=== PATIENT | male | born 1975 | race Caucasian/White ===

== ENCOUNTER 2016-11-20 12:19 | Emergency (ER) | payer OTHER ==
[~2016-11-20] VITALS: Wt 75.0 kg
[~2016-11-20 12:19] MED LIST: ACET1TAB40 PO; ALBU8.5H3 INH; ARIP20TA6 PO; CLIN-73 PO; HYDR-3498 PO; HYDR-906 PO; IBUP-1542 PO; KENC1 TOP; NAPR-260 PO; NAPR-688 PO; PARO30TA48 PO; PRED50TA PO
== END 2016-11-20 14:39 | disposition left against medical advice (07) ==
LOC: FTE 12:19
DX: Z53.21 Procedure and treatment not carried out due to patient leaving prior to being seen by health care provider (principal)

== ENCOUNTER 2016-12-26 21:04 | Emergency (ER) | payer OTHER ==
[~2016-12-26] VITALS: Ht 177.8 cm; Wt 70.4 kg
[2016-12-26 21:07] VITALS: Ht 177.8 cm; Wt 70.4 kg
--- NOTE | 2016-12-26 22:30 | ERD ---
ER Documentation Chief Complaint Date/Time DATE: 12/26/16 TIME: 22:27 Chief Complaint HAND PAIN. STATES HIS OSTEOARTHRITIS IS "ACTING UP" HPI 41-year-old male presents here in emergency department for complaints of left hand pain started today. Patient has history of osteoarthritis of the left hand , also had procedures done on the left hand, had a history of fracture of the left hand started to have the pain again today. Patient has had chronic pain on affected area but it acted up again today. Patient denies any reinjury. Patient noticed some swelling on affected area. Patient did not take any medications for pain. Patient denies any numbness or tingling. Patient states he is able to do full range of motion of the left hand without restriction. ROS All systems reviewed and are negative except as per history of present illness. Medications Home Meds Active Scripts Acetaminophen with Codeine (Acetaminophen-Cod #3 Tablet) 1 Each Tablet, 1 TAB PO Q6H Y for PAIN, #10 TAB Prov:SALMA MAYFIELD MD 09/25/16 Ibuprofen* (Motrin*) 600 Mg Tab, 600 MG PO Q6, #30 TAB Prov:SALMA MAYFIELD MD 09/25/16 Prednisone* (Prednisone*) 50 Mg Tablet, 50 MG PO DAILY, #4 TAB Prov:MARIBELL GAINES PA-C 09/22/16 Albuterol Sulfate* (Proair HFA*) 8.5 Gm Hfa.aer.ad, 2 PUFF INH Q4, #1 INHALER Prov:MARIBELL GAINES PA-C 09/22/16 Hydrocodone/Acetaminophen ([place] 5-325 Tablet) 1 Each Tablet, 1 EACH PO Q6, #7 TAB Prov:TANIA URIOSTEGUI DO 09/14/16 Naproxen* (Naprosyn*) 500 Mg Tablet, 500 MG PO BID Y for PAIN AND/OR INFLAMMATION, #22 TAB Prov:TANIA URIOSTEGUI DO 09/14/16 Triamcinolone Acetonide* (Kenalog*) 0.1%-15GM Cr, 1 APPLIC TOP BID, #1 TUB Prov:JENNIFER DIAMOND 06/13/16 Naproxen* (Naprosyn*) 500 Mg Tablet, 500 MG PO BID Y for PAIN AND/OR INFLAMMATION, #30 TAB Prov:JAYSON ZUÑIGA PA-C 05/06/16 Hydrocodone Bit-Acetaminophen* ([place]*) 5-325 Mg Tab, 1 TAB PO Q6 Y for PAIN, # 7 TAB Prov:ZUÑIGAJAYSONDMITRY Klein PA-C 05/06/16 Naproxen* (Naproxen*) 500 Mg Tablet, 500 MG PO BID Y for PAIN LEVEL 1-5, #30 TAB Prov:TANIA URIOSTEGUI DO 01/17/16 Clindamycin Hcl* (Clindamycin Hcl*) 300 Mg Capsule, 300 MG PO TID for 10 Days, CAP Prov:LEONEL MORRIS NP 09/15/15 Reported Medications Hydrocodone Bit-Acetaminophen ([place]) 1 Tab Tablet, 1 TAB PO Q6 06/06/12 Aripiprazole* (Abilify*) 20 Mg Tablet, 30 MG PO DAILY, 0 Refills 06/06/12 Paroxetine Hcl* (Paxil*) 30 Mg Tablet, 40 MG PO DAILY, 0 Refills 06/06/12 Allergies Allergies: Coded Allergies: Phenytoin Sodium Extended (Verified Allergy, Intermediate, INCREASE SZ ACTIVITY, 09/25/16) PMhx/Soc History of Surgery: Yes (l hand sx 10/08) Anesthesia Reaction: No Hx Neurological Disorder: Yes (seizure) Hx Respiratory Disorders: No Hx Cardiac Disorders: No Hx Psychiatric Problems: Yes (bipolar, schizoprenia) Hx Miscellaneous Medical Probl: Yes (osteoarthritis) Hx Alcohol Use: Yes Hx Substance Use: No Hx Tobacco Use: Yes (1/2 PACK/DAY) Smoking Status: Current every day smoker FmHx Family History: No coronary disease, No diabetes, No other Physical Exam Vitals Vital Signs Date Time Temp Pulse Resp B/P Pulse Ox O2 Delivery O2 Flow Rate FiO2 12/26/16 21:07 98.0 110 20 116/79 98 Physical Exam GENERAL: The patient is well developed and appropriate for usual state of health, in no apparent distress. CHEST: Clear to auscultation bilaterally. There are no rales, wheezes or rhonchi. HEART: Regular rate and rhythm. No murmurs, clicks, rubs or gallops. No S3 or S4. ABDOMEN: Soft, nontender and nondistended. Good bowel sounds. No rebound or guarding. No gross peritonitis. No gross organomegaly or masses. No Liu sign or McBurney point tenderness. BACK: No midline or flank tenderness. EXTREMITIES: Noted some deformity on the left fifth metacarpal area, mild swelling noted, able to do for range of motion of the left hand without any restriction. Equal pulses bilaterally. For range of motion of other joints of the body. Grossly neurovascularly intact. NEURO: Alert and oriented. Cranial nerves 2-12 intact. Motor strength in all 4 extremities with 5/5 strength. Sensation grossly intact. Normal speech and gait. SKIN: There is no apparent rash or petechia. The skin is warm and dry. HEMATOLOGIC AND LYMPHATIC: There is no evidence of excessive bruising or lymphedema. No gross cervical, axillary, or inguinal lymphadenopathy. Results 24 hrs PROCEDURE: XR Hand. CLINICAL INDICATION: Left hand pain in the fifth metacarpal base TECHNIQUE: PA, oblique and lateral views of the left hand were obtained. COMPARISON: Most recent exam 05/06/2016 FINDINGS: Again noted is bony deformity at the posterior fifth metacarpal base with an ununited nondisplaced fracture in this location. Bony fragmentation is unchanged and there is persistent dorsal angulation and mild subluxation of the fifth metacarpal base relative to the carpal bones. There is no evidence of acute fracture or dislocation. Bone mineralization and architecture are normal. RPTAT:HJJR IMPRESSION: Stable changes of the left fifth metacarpal base compared to the most recent exam of 05/06/2016 most consistent with post traumatic osteoarthrosis, chronic posterior subluxation and bony fragmentation as well as likely incomplete union of the previously seen fifth metacarpal base fracture. No new abnormalities are demonstrated compared to the previous exam. Physician Armando Date Time Electronically viewed and signed by Physician Armando on 12/26/2016 22:55 JR/ CC: KRISTIAN BHAKTA ARMATURE STRAIGHTENER Procedures/MDM Medical Decision Making: Patient's pain is most likely consistent with a on a pain of the left hand consistent with previous injuries. There is no suspicion for neurovascular compromise. Patient has intact sensation and circulation of the affected extremity. There is low suspicion for septic arthritis. Patient does not have any fever. Radiology exams of the affected area does not show any new fracture or dislocation. Disposition: Home. Patient is given prescription for ibuprofen for pain, [place] for severe pain. Patient was advised to elevate the affected area and apply ice on affected area. Patient was advised that if symptoms are worse, numbness, tingling, high fever, unable to move joint, worsening symptoms, to return to emergency department immediately. Otherwise, patient is advised to follow up with the primary care doctor in 5-7 days for reevaluation of symptoms. Departure Diagnosis: Primary Impression: Pain of hand Laterality: left Qualified Code: M79.642 - Pain of left hand Condition: Stable Patient Instructions: Chronic Pain Additional Instructions: Patient is given prescription for ibuprofen for pain, [place] for severe pain. Patient was advised to elevate the affected area and apply ice on affected area. Patient was advised that if symptoms are worse, numbness, tingling, high fever, unable to move joint, worsening symptoms, to return to emergency department immediately. Otherwise, patient is advised to follow up with the primary care doctor in 5-7 days for reevaluation of symptoms. KRISTIAN BHAKTA NP Dec 26, 2016 22:29
--- NOTE | 2016-12-26 22:55 | RADRPT ---
PROCEDURE: XR Hand. CLINICAL INDICATION: Left hand pain in the fifth metacarpal base TECHNIQUE: PA, oblique and lateral views of the left hand were obtained. COMPARISON: Most recent exam 05/06/2016 FINDINGS: Again noted is bony deformity at the posterior fifth metacarpal base with an ununited nondisplaced f racture in this location. Bony fragmentation is unchanged and there is persistent dorsal angulation and mild subluxation of the fifth metacarpal base relative to the carpal bones. There is no eviden ce of acute fracture or dislocation. Bone mineralization and architecture are normal. RPTAT:HJJR IMPRESSION: Stable changes of the left fifth metacarpal base compared to the most recent exam of 05/06/2016 most consistent with post traumatic osteoarthrosis, chronic posterior subluxation and bony fragmentation as well as likely incomplete union of the previously seen fifth metacarpal base fracture. No new a bnormalities are demonstrated compared to the previous exam. Physician Armando Date Time Electronically viewed and signed by Physician Armando on 12/26/2016 22:55 /
[2016-12-26] MEDS ORDERED: HYDR-906 PO (23:00)
[2016-12-26] MEDS ORDERED: IBUP-1542 PO (23:00)
== END 2016-12-26 23:18 | disposition home or self-care (01) ==
LOC: FTE 21:04
DX: M79.642 Pain in left hand (principal); F17.210 Nicotine dependence, cigarettes, uncomplicated
CPT/HCPCS: 73130; Z7502

== ENCOUNTER 2017-01-06 22:56 | Emergency (ER) | payer SELFPAY ==
[~2017-01-06] VITALS: Ht 180.3 cm; Wt 68.5 kg
[2017-01-06 23:42] VITALS: Ht 180.3 cm; Wt 68.5 kg
== END 2017-01-07 02:39 | disposition left against medical advice (07) ==
LOC: FTE 22:56
DX: Z53.21 Procedure and treatment not carried out due to patient leaving prior to being seen by health care provider (principal)

== ENCOUNTER 2017-01-18 13:00 | Emergency (ER) | payer SELFPAY | END 2017-01-18 13:28 | disposition left against medical advice (07) | LOC: E/R 13:00 | DX: Z53.21 Procedure and treatment not carried out due to patient leaving prior to being seen by health care provider (principal) ==

== ENCOUNTER 2017-01-23 08:47 | Emergency (ER) | payer OTHER ==
[~2017-01-23] VITALS: Ht 177.8 cm; Wt 75.0 kg
[2017-01-23 08:49] VITALS: Ht 177.8 cm; Wt 75.0 kg
[2017-01-23 09:36] LABS: ADD SCAN DIFF NO
[2017-01-23 09:43] LABS: BASOPHILS % 0.3 % (0.0-2.0); EOSINOPHILS # 0.1 10^3/ul (0.0-0.5); EOSINOPHILS % 1.3 % (0.0-7.0); HEMOGLOBIN 13.7 g/dl (14.0-18.0); LYMPHOCYTES # 1.5 10^3/ul (0.8-2.9); LYMPHOCYTES % 38.4 % (15.0-51.0); MEAN CORPUSCULAR HEMOGLOBIN 30.9 pg (29.0-33.0); MEAN CORPUSCULAR HGB CONC 32.6 g/dl (32.0-37.0); MEAN CORPUSCULAR VOLUME 94.8 fl (82.0-101.0); MEAN PLATELET VOLUME 9.2 fl (7.4-10.4); MONOCYTE # 0.5 10^3/ul (0.3-0.9); NEUTROPHIL # 1.8 10^3/ul (1.6-7.5); NEUTROPHILS % 46.7 % (39.0-77.0); PLATELET COUNT 229 10^3/UL (140-415); RED BLOOD COUNT 4.43 10^6/ul (4.70-6.10); RED CELL DISTRIBUTION WIDTH 13.9 % (11.5-14.5); WHITE BLOOD COUNT 3.8 10^3/ul (4.8-10.8)
[2017-01-23 09:51] LABS: ALBUMIN 3.8 g/dl (3.3-4.9)
[2017-01-23 09:52] LABS: ADD UMIC NO; CHLORIDE 106 mmol/L (97-110); POTASSIUM 4.3 mmol/L (3.5-5.1); SODIUM 139 mmol/L (135-144); URINE BILIRUBIN (Dip) NEGATIVE (NEGATIVE); URINE BLOOD (Dip) NEGATIVE (NEGATIVE); URINE COLOR LT. YELLOW (YELLOW); URINE GLUCOSE (Dip) NEGATIVE (NEGATIVE); URINE KETONES (Dip) NEGATIVE (NEGATIVE); URINE LEUKOCYTE ESTERASE (Dip) NEGATIVE (NEGATIVE); URINE NITRITE (Dip) NEGATIVE (NEGATIVE); URINE TOTAL PROTEIN (Dip) NEGATIVE (NEGATIVE); URINE UROBILINOGEN (Dip) 0.2 E.U./dL (0.1-1.0)
[2017-01-23 09:54] LABS: ALKALINE PHOSPHATASE 54 IU/L (42-121); ANION GAP 9 (8-16); ASPARTATE AMINO TRANSFERASE 18 IU/L (15-46); BILIRUBIN,INDIRECT 0.4 mg/dl (0-1.1); BILIRUBIN,TOTAL 0.4 mg/dl (0.2-1.3); BLOOD UREA NITROGEN 19 mg/dl (7-20); CARBON DIOXIDE 28 mmol/L (21-31); CREATININE 0.78 mg/dl (0.61-1.24); TOTAL PROTEIN 6.5 g/dl (6.1-8.1)
[2017-01-23 09:55] LABS: ALANINE AMINOTRANSFERASE 30 IU/L (13-69); CALCIUM 8.8 mg/dl (8.4-10.2); GLUCOSE 109 mg/dl (70-220)
[2017-01-23 10:15] LABS: ACETAMINOPHEN < 10.0 ug/ml (10.0-30.0); ETHANOL < 10.0 mg/dl; SALICYLATE < 1.0 mg/dl (5.0-30.0)
--- NOTE | 2017-01-23 10:16 | PSY ---
Date/Time of Note Date/Time of Note DATE: 01/23/17 TIME: 13:11 Psychiatric Subjective Eval Consent Pt consented to telemedicine: Yes Subjective Evaluation Patient location: emergency Chief Complaint: SUICIDAL IDEATION,HAD PREVIOUS ATTEMPT.WANTS TO USE RASOR TO CUT WRIST Reason for consult: si History of present illness The patient is a 37 yo male with a self reported ho bipolar disorder, schizophrenia, and methamphetamine dependence. He has been nonadherent with meds for a month, and has been using methamphetamine. He brought himself to the ER for depression, CAH to kill self, cutting, and SI withplan to cut self to . He desires admission. Past Psych Hx: reports numerous past admissions and suicide attempts; cuts frequently PMHx: epilepsy Meds: nonadherent with gabapentin, abilify, VPA All: phenytoin Medical history Problems Medical Problems: (1) Asthma exacerbation Status: Acute (2) Cellulitis Status: Acute (3) Drug-seeking behavior Status: Acute (4) Elbow pain Status: Acute (5) Foot pain Status: Acute (6) Hand fracture Status: Acute (7) Hip injury Status: Acute (8) Injury of hand Status: Acute (9) Osteoarthritis Status: Acute (10) Pain of hand Status: Acute (11) Pain of hand Status: Acute (12) Pain of hand Status: Acute (13) Patient left without being seen Status: Acute (14) Sprain of ankle, right Status: Acute (15) Strain of right hip Status: Acute Allergies: Coded Allergies: Phenytoin Sodium Extended (Verified Allergy, Intermediate, INCREASE SZ ACTIVITY, 09/25/16) Psychiatric Objective Eval Mental Status Examination: Appearance: Disheveled Eye Contact: Good Psychomotor Activity: Normal Behavior: Cooperative Speech: Clear AFFECT: Blunt Mood: Depressed Though Process: Linear Thought Content: Normal Suicidal: Yes On 72 hour hold: Yes Orientation: x4 Cognition: Alert Insight: Intact Judgement: Impared Attention Span: Intact Laboratory Results Laboratory Tests Test 01/23/17 09:18 White Blood Count 3.810^3/ul Red Blood Count 4.4310^6/ul Hemoglobin 13.7g/dl Hematocrit 42.0% Mean Corpuscular Volume 94.8fl Mean Corpuscular Hemoglobin 30.9pg Mean Corpuscular Hemoglobin Concent 32.6g/dl Red Cell Distribution Width 13.9% Platelet Count 58166^3/UL Mean Platelet Volume 9.2fl Neutrophils % 46.7% Lymphocytes % 38.4% Monocytes % 13.0% Eosinophils % 1.3% Basophils % 0.3% Nucleated Red Blood Cells % 0.0/100WBC Neutrophils # 1.810^3/ul Lymphocytes # 1.510^3/ul Monocytes # 0.510^3/ul Eosinophils # 0.110^3/ul Basophils # 0.010^3/ul Nucleated Red Blood Cells # 0.010^3/ul Urine Color LT. YELLOW Urine Clarity CLEAR Urine pH 5.5 Urine Specific [place] 1.010 Urine Ketones NEGATIVE Urine Nitrite NEGATIVE Urine Bilirubin NEGATIVE Urine Urobilinogen 0.2 E.U./dL Urine Leukocyte Esterase NEGATIVE Urine Hemoglobin NEGATIVE Urine Glucose NEGATIVE% Urine Total Protein NEGATIVE Sodium Level 139mmol/L Potassium Level 4.3mmol/L Chloride Level 106mmol/L Carbon Dioxide Level 28mmol/L Anion Gap 9 Blood Urea Nitrogen 19mg/dl Creatinine 0.78mg/dl Glucose Level 109mg/dl Calcium Level 8.8mg/dl Total Bilirubin 0.4mg/dl Direct Bilirubin 0.00mg/dl Indirect Bilirubin 0.4mg/dl Aspartate Amino Transf (AST/SGOT) 18IU/L Alanine Aminotransferase (ALT/SGPT) 30IU/L Alkaline Phosphatase 54IU/L Total Protein 6.5g/dl Albumin 3.8g/dl Globulin 2.70g/dl Albumin/Globulin Ratio 1.40 Assessment and Plan Assessment/Diagnosis [place] I: bipolar do, with psychosis; methamphetamine abuse Recommendation/Plan Medication Management 41 yo male with BAD/SCZ, meth abuse, with SI with plan, CAH to kill self in context of methamphetamine use and med nonadherence. -inpatient admission (pt agrees to this) -restart abilify2.5mg for 2d then 5mg after antiepileptic has been started ( preference would be VPA given he has been on it before and it works for BAD) to make sure abilify does nto lower sz threshold -restart gabapentin 600mg bid -for severe agitation, haldol 5mg IM, ativan 2mg im, cogentin 1mg im JOHANA CORTEZ Jan 23, 2017 10:16
[2017-01-23 10:25] LABS: BARBITURATES Negative (NEGATIVE); BENZODIAZEPINES Negative (NEGATIVE); CANNABINOIDS Negative (NEGATIVE); COCAINE Negative (NEGATIVE); OPIATES Negative (NEGATIVE)
[2017-01-23] MEDS ORDERED: ARIPIPRAZOLE 5 MG TAB PO SCH (10:30)
[2017-01-23] MEDS ORDERED: DIVALPROEX (EC) 500 MG TAB PO ONE (10:30)
[2017-01-23] MEDS ORDERED: GABAPENTIN 300 MG CAP PO SCH (10:30)
--- NOTE | 2017-01-23 10:36 | ERA ---
ER Documentation Chief Complaint Date/Time DATE: 01/23/17 TIME: 10:33 Chief Complaint SUICIDAL IDEATION,HAD PREVIOUS ATTEMPT.WANTS TO USE RASOR TO CUT WRIST HPI Patient is a 41-year-old male with bipolar and schizophrenia presents with "I have a medical problem and I am tired and I do not want to live like this". He says "I need help". He says that he is feeling suicidal and has a history of cutting. He also said that last week he went on top of a over the past and was going to jump onto the freeway. He is supposed to be on Abilify, Depakote, and gabapentin but he has not been taking them for about 1 month. He is willing to go to a voluntary psychiatric facility. He said that his last methamphetamine use was 4 days ago. ROS All systems reviewed and are negative except as per history of present illness. Medications Home Meds Active Scripts Hydrocodone/Acetaminophen ([place] 5-325 Tablet) 1 Each Tablet, 1 TAB PO Q6H Y for SEVERE PAIN LEVEL 7-10, #7 TAB Prov:KRISTIAN BHAKTA NP 12/26/16 Ibuprofen* (Motrin*) 600 Mg Tab, 600 MG PO Q6H Y for PAIN AND OR ELEVATED TEMP, #30 TAB Prov:KRISTIAN BHAKTA NP 12/26/16 Acetaminophen with Codeine (Acetaminophen-Cod #3 Tablet) 1 Each Tablet, 1 TAB PO Q6H Y for PAIN, #10 TAB Prov:SALMA MAYFIELD MD 09/25/16 Ibuprofen* (Motrin*) 600 Mg Tab, 600 MG PO Q6, #30 TAB Prov:SALMA MAYFIELD MD 09/25/16 Prednisone* (Prednisone*) 50 Mg Tablet, 50 MG PO DAILY, #4 TAB Prov:MARIBELL GAINES PA-C 09/22/16 Albuterol Sulfate* (Proair HFA*) 8.5 Gm Hfa.aer.ad, 2 PUFF INH Q4, #1 INHALER Prov:MARIBELL GAINES PA-C 09/22/16 Hydrocodone/Acetaminophen ([place] 5-325 Tablet) 1 Each Tablet, 1 EACH PO Q6, #7 TAB Prov:TANIA URIOSTEGUI DO 09/14/16 Naproxen* (Naprosyn*) 500 Mg Tablet, 500 MG PO BID Y for PAIN AND/OR INFLAMMATION, #22 TAB Prov:TANIA URIOSTEGUI DO 09/14/16 Triamcinolone Acetonide* (Kenalog*) 0.1%-15GM Cr, 1 APPLIC TOP BID, #1 TUB Prov:JENNIFER DIAMOND 06/13/16 Naproxen* (Naprosyn*) 500 Mg Tablet, 500 MG PO BID Y for PAIN AND/OR INFLAMMATION, #30 TAB Prov:JAYSON ZUÑIGA PA-C 05/06/16 Hydrocodone Bit-Acetaminophen* ([place]*) 5-325 Mg Tab, 1 TAB PO Q6 Y for PAIN, # 7 TAB Prov:JAYSON ZUÑIGA PA-C 05/06/16 Naproxen* (Naproxen*) 500 Mg Tablet, 500 MG PO BID Y for PAIN LEVEL 1-5, #30 TAB Prov:TANIA URIOSTEGUI DO 01/17/16 Clindamycin Hcl* (Clindamycin Hcl*) 300 Mg Capsule, 300 MG PO TID for 10 Days, CAP Prov:LEONEL MORRIS NP 09/15/15 Reported Medications Hydrocodone Bit-Acetaminophen ([place]) 1 Tab Tablet, 1 TAB PO Q6 06/06/12 Aripiprazole* (Abilify*) 20 Mg Tablet, 30 MG PO DAILY, 0 Refills 06/06/12 Paroxetine Hcl* (Paxil*) 30 Mg Tablet, 40 MG PO DAILY, 0 Refills 06/06/12 Allergies Allergies: Coded Allergies: Phenytoin Sodium Extended (Verified Allergy, Intermediate, INCREASE SZ ACTIVITY, 09/25/16) PMhx/Soc History of Surgery: Yes (l hand sx 10/08) Anesthesia Reaction: No Hx Neurological Disorder: Yes (seizure) Hx Respiratory Disorders: No Hx Cardiac Disorders: No Hx Psychiatric Problems: Yes (bipolar, schizoprenia) Hx Miscellaneous Medical Probl: Yes (osteoarthritis) Hx Alcohol Use: Yes (occasional) Hx Substance Use: Yes (meth 4 days ago) Hx Tobacco Use: Yes (1/2 PACK/DAY) Smoking Status: Current every day smoker FmHx Family History: diabetes Physical Exam Vitals Vital Signs Date Time Temp Pulse Resp B/P Pulse Ox O2 Delivery O2 Flow Rate FiO2 01/23/17 08:49 98.5 89 18 136/87 98 Physical Exam Const: No acute distress Head: Atraumatic Eyes: Normal Conjunctiva ENT: Normal External Ears, Nose and Mouth. Neck: Full range of motion..~ No meningismus. Resp: Clear to auscultation bilaterally Cardio: Regular rate and rhythm, no murmurs Abd: Soft, non tender, non distended. Normal bowel sounds Skin: Old cutting scars to the right forearm Back: No midline or flank tenderness Ext: No cyanosis, or edema Neur: Awake and alert Psych: Positive suicidal thoughts with willingness to go voluntarily to a psychiatric facility Result Diagram: 01/23/1718 01/23/1718 Results 24 hrs Laboratory Tests Test 01/23/17 09:18 White Blood Count 3.810^3/ul Red Blood Count 4.4310^6/ul Hemoglobin 13.7g/dl Hematocrit 42.0% Mean Corpuscular Volume 94.8fl Mean Corpuscular Hemoglobin 30.9pg Mean Corpuscular Hemoglobin Concent 32.6g/dl Red Cell Distribution Width 13.9% Platelet Count 12634^3/UL Mean Platelet Volume 9.2fl Neutrophils % 46.7% Lymphocytes % 38.4% Monocytes % 13.0% Eosinophils % 1.3% Basophils % 0.3% Nucleated Red Blood Cells % 0.0/100WBC Neutrophils # 1.810^3/ul Lymphocytes # 1.510^3/ul Monocytes # 0.510^3/ul Eosinophils # 0.110^3/ul Basophils # 0.010^3/ul Nucleated Red Blood Cells # 0.010^3/ul Urine Color LT. YELLOW Urine Clarity CLEAR Urine pH 5.5 Urine Specific [place] 1.010 Urine Ketones NEGATIVE Urine Nitrite NEGATIVE Urine Bilirubin NEGATIVE Urine Urobilinogen 0.2 E.U./dL Urine Leukocyte Esterase NEGATIVE Urine Hemoglobin NEGATIVE Urine Glucose NEGATIVE% Urine Total Protein NEGATIVE Sodium Level 139mmol/L Potassium Level 4.3mmol/L Chloride Level 106mmol/L Carbon Dioxide Level 28mmol/L Anion Gap 9 Blood Urea Nitrogen 19mg/dl Creatinine 0.78mg/dl Glucose Level 109mg/dl Calcium Level 8.8mg/dl Total Bilirubin 0.4mg/dl Direct Bilirubin 0.00mg/dl Indirect Bilirubin 0.4mg/dl Aspartate Amino Transf (AST/SGOT) 18IU/L Alanine Aminotransferase (ALT/SGPT) 30IU/L Alkaline Phosphatase 54IU/L Total Protein 6.5g/dl Albumin 3.8g/dl Globulin 2.70g/dl Albumin/Globulin Ratio 1.40 Salicylates Level < 1.0mg/dl Urine Opiates Screen Negative Acetaminophen Level < 10.0ug/ml Urine Barbiturates Negative Urine Amphetamines Screen Negative Urine Benzodiazepines Screen Negative Urine Cocaine Screen Negative Urine Cannabinoids Negative Ethyl Alcohol Level < 10.0mg/dl Current Medications Medications (Trade) Dose Ordered Sig/Faina Route PRN Reason Start Time Stop Time Status Last Admin Dose Admin Divalproex Sodium (Depakote) 500 mg ONCE ONCE PO 01/23/17 10:30 01/23/17 10:31 UNV Aripiprazole (Abilify) 2.5 mg DAILY PO 01/23/17 10:30 UNV Gabapentin (Neurontin) 600 mg BID PO 01/23/17 10:30 UNV Procedures/MDM Smoking Cessation Therapy: Pt. was lectured for greater than 3 minutes on the health risks of continued smoking and the benefits of cessation. Patient is a 41-year-old male who presents with suicidal thoughts. He is willing to go to a psychiatric facility voluntarily and I do believe that he would be a good patient to go to [facility] as they are a voluntary psychiatric facility. The patient had laboratory studies and urine drug screen which were negative and I believe he is now medically clear. His aspirin, Tylenol, and alcohol levels are negative. The patient had a psychiatric evaluation and psychiatric treatment was recommended. I did order Abilify, Depakote, and gabapentin as directed by the psychiatrist. Departure Diagnosis: Primary Impression: Suicidal ideation Condition: MEAGAN Niño MD Jan 23, 2017 10:36
[2017-01-23 12:59] VITALS: BP 118/85; PULSE 81; RESP 16; TEMP 98.4
== END 2017-01-23 12:47 ==
LOC: E/R 08:47
DX: F29 Unspecified psychosis not due to a substance or known physiological condition (principal); R40.2252 Coma scale, best verbal response, oriented, at arrival to emergency department; R45.851 Suicidal ideations; F17.210 Nicotine dependence, cigarettes, uncomplicated; R40.2142 Coma scale, eyes open, spontaneous, at arrival to emergency department; R40.2362 Coma scale, best motor response, obeys commands, at arrival to emergency department
CPT/HCPCS: 36415; 80053; 80164; 80306; 80307; 81003; 85025; Z7502; Z7610; 99285

== ENCOUNTER 2017-01-27 14:25 | Emergency (ER) | payer SELFPAY ==
[~2017-01-27] VITALS: Wt 76.0 kg
== END 2017-01-27 17:11 | disposition left against medical advice (07) ==
LOC: E/R 14:25
DX: Z53.21 Procedure and treatment not carried out due to patient leaving prior to being seen by health care provider (principal)

== ENCOUNTER 2017-01-28 12:53 | Emergency (ER) | payer OTHER ==
[~2017-01-28] VITALS: Ht 170.2 cm; Wt 68.0 kg
[2017-01-28 13:01] VITALS: Ht 170.2 cm; Wt 68.0 kg
[2017-01-28] MEDS: DIVALPROEX (EC) 500 MG TAB PO SCH (13:57)
[2017-01-28] MEDS: GABAPENTIN 300 MG CAP PO SCH ×2 (13:58→21:06)
[2017-01-28] MEDS: ARIPIPRAZOLE 5 MG TAB PO SCH (13:58)
[2017-01-28 13:59] LABS: ADD SCAN DIFF NO
[2017-01-28 14:04] LABS: BASOPHILS % 0.1 % (0.0-2.0); EOSINOPHILS % 0.6 % (0.0-7.0); HEMATOCRIT 45.9 % (42.0-52.0); HEMOGLOBIN 14.6 g/dl (14.0-18.0); LYMPHOCYTES # 2.3 10^3/ul (0.8-2.9); LYMPHOCYTES % 33.6 % (15.0-51.0); MEAN CORPUSCULAR HEMOGLOBIN 30.3 pg (29.0-33.0); MEAN CORPUSCULAR HGB CONC 31.8 g/dl (32.0-37.0); MEAN CORPUSCULAR VOLUME 95.2 fl (82.0-101.0); MEAN PLATELET VOLUME 8.9 fl (7.4-10.4); MONOCYTE # 0.9 10^3/ul (0.3-0.9); MONOCYTES % 13.7 % (0.0-11.0); NEUTROPHIL # 3.6 10^3/ul (1.6-7.5); NEUTROPHILS % 51.7 % (39.0-77.0); PLATELET COUNT 313 10^3/UL (140-415); RED BLOOD COUNT 4.82 10^6/ul (4.70-6.10); RED CELL DISTRIBUTION WIDTH 13.9 % (11.5-14.5); WHITE BLOOD COUNT 6.9 10^3/ul (4.8-10.8)
[2017-01-28 14:12] LABS: ADD UMIC NO; URINE BILIRUBIN (Dip) NEGATIVE (NEGATIVE); URINE BLOOD (Dip) NEGATIVE (NEGATIVE); URINE COLOR LT. YELLOW (YELLOW); URINE GLUCOSE (Dip) NEGATIVE (NEGATIVE); URINE KETONES (Dip) NEGATIVE (NEGATIVE); URINE LEUKOCYTE ESTERASE (Dip) NEGATIVE (NEGATIVE); URINE NITRITE (Dip) NEGATIVE (NEGATIVE); URINE TOTAL PROTEIN (Dip) NEGATIVE (NEGATIVE); URINE UROBILINOGEN (Dip) 0.2 E.U./dL (0.1-1.0)
[2017-01-28 14:17] LABS: ALBUMIN 5.1 g/dl (3.3-4.9); CHLORIDE 104 mmol/L (97-110)
[2017-01-28 14:18] LABS: POTASSIUM 3.9 mmol/L (3.5-5.1); SODIUM 146 mmol/L (135-144)
[2017-01-28 14:20] LABS: ALANINE AMINOTRANSFERASE 35 IU/L (13-69); ALBUMIN/GLOBULIN RATIO 1.54; ALKALINE PHOSPHATASE 65 IU/L (42-121); ANION GAP 17 (8-16); ASPARTATE AMINO TRANSFERASE 50 IU/L (15-46); BLOOD UREA NITROGEN 30 mg/dl (7-20); CALCIUM 9.7 mg/dl (8.4-10.2); CARBON DIOXIDE 29 mmol/L (21-31); CREATININE 0.99 mg/dl (0.61-1.24); GLUCOSE 116 mg/dl (70-220); TOTAL PROTEIN 8.4 g/dl (6.1-8.1)
[2017-01-28 14:21] LABS: ACETAMINOPHEN < 10.0 ug/ml (10.0-30.0); SALICYLATE < 1.0 mg/dl (5.0-30.0)
[2017-01-28 14:22] LABS: ETHANOL < 10.0 mg/dl
[2017-01-28] MEDS ORDERED: LORAZEPAM 1 MG TAB PO ONE (14:30)
[2017-01-28 14:32] LABS: BARBITURATES Negative (NEGATIVE); BENZODIAZEPINES Negative (NEGATIVE)
[2017-01-28 14:34] LABS: CANNABINOIDS Negative (NEGATIVE); COCAINE Negative (NEGATIVE); OPIATES Negative (NEGATIVE)
--- NOTE | 2017-01-28 14:51 | PSY ---
Date/Time of Note Date/Time of Note DATE: 01/28/17 TIME: 14:44 Psychiatric Subjective Eval Consent Pt consented to telemedicine: Yes Subjective Evaluation Patient location: emergency Chief Complaint: pt arrived with razor blade in mouth and wants to ,removed in triage Reason for consult: suicidal ideation History of present illness PT IS 41 YO homeless, unemployed male, a registered sex offender, with hx frequent ED visits due to Si and frequent psychiatric admissions. Pt admits to using meth prior to coming to ED. He says he has been feeling suicidal for 2 years because he feels like people are following him. He reports depressed mood , command Ah and Si with a plan to cut himself. He denies Vh and HI. Homeless for 2 months since a break up with his partner. Past psychiatric history last inpt was a week ago; he is on abilify and depakote. hx incarderation in 2009 for indecent exposure Hospitalization: Suicidal Attempt(s) Family History denies Medical history Problems Medical Problems: (1) Asthma exacerbation Status: Acute (2) Cellulitis Status: Acute (3) Drug-seeking behavior Status: Acute (4) Elbow pain Status: Acute (5) Foot pain Status: Acute (6) Hand fracture Status: Acute (7) Hip injury Status: Acute (8) Injury of hand Status: Acute (9) Osteoarthritis Status: Acute (10) Pain of hand Status: Acute (11) Pain of hand Status: Acute (12) Pain of hand Status: Acute (13) Patient left without being seen Status: Acute (14) Patient left without being seen Status: Acute (15) Sprain of ankle, right Status: Acute (16) Strain of right hip Status: Acute (17) Suicidal ideation Status: Acute Allergies: Coded Allergies: Phenytoin Sodium Extended (Verified Allergy, Intermediate, INCREASE SZ ACTIVITY, 09/25/16) Substance Abuse Substance abuse history: Yes Prior substance abuse treatmen: Yes Social History Marital status: single Level of education: hs DPA/Conservatorship: No Psychiatric Objective Eval Review of Systems: Review of Systems: Not Applicable Physical Examination: Physical Examination: Not Applicable Appetite: Decreased Energy: Decreased Interest: Decreased Mental Status Examination: Appearance: Groomed Eye Contact: Fair Psychomotor Activity: Normal Behavior: Guarded Speech: Clear AFFECT: Guarded Mood: Depressed Though Process: Linear Thought Content: Hallucinations Suicidal: Yes Homicidal: No On 72 hour hold: No Orientation: x4 Cognition: Alert Insight: Impared Judgement: Impared Laboratory Results Laboratory Tests Test 01/28/17 13:45 White Blood Count 6.910^3/ul Red Blood Count 4.8210^6/ul Hemoglobin 14.6g/dl Hematocrit 45.9% Mean Corpuscular Volume 95.2fl Mean Corpuscular Hemoglobin 30.3pg Mean Corpuscular Hemoglobin Concent 31.8g/dl Red Cell Distribution Width 13.9% Platelet Count 50467^3/UL Mean Platelet Volume 8.9fl Neutrophils % 51.7% Lymphocytes % 33.6% Monocytes % 13.7% Eosinophils % 0.6% Basophils % 0.1% Nucleated Red Blood Cells % 0.0/100WBC Neutrophils # 3.610^3/ul Lymphocytes # 2.310^3/ul Monocytes # 0.910^3/ul Eosinophils # 0.010^3/ul Basophils # 0.010^3/ul Nucleated Red Blood Cells # 0.010^3/ul Urine Color LT. YELLOW Urine Clarity CLEAR Urine pH 6.0 Urine Specific [place] 1.020 Urine Ketones NEGATIVE Urine Nitrite NEGATIVE Urine Bilirubin NEGATIVE Urine Urobilinogen 0.2 E.U./dL Urine Leukocyte Esterase NEGATIVE Urine Hemoglobin NEGATIVE Urine Glucose NEGATIVE% Urine Total Protein NEGATIVE Sodium Level 146mmol/L Potassium Level 3.9mmol/L Chloride Level 104mmol/L Carbon Dioxide Level 29mmol/L Anion Gap 17 Blood Urea Nitrogen 30mg/dl Creatinine 0.99mg/dl Glucose Level 116mg/dl Calcium Level 9.7mg/dl Total Bilirubin 2.0mg/dl Direct Bilirubin 0.00mg/dl Indirect Bilirubin 2.0mg/dl Aspartate Amino Transf (AST/SGOT) 50IU/L Alanine Aminotransferase (ALT/SGPT) 35IU/L Alkaline Phosphatase 65IU/L Total Protein 8.4g/dl Albumin 5.1g/dl Globulin 3.30g/dl Albumin/Globulin Ratio 1.54 Salicylates Level < 1.0mg/dl Urine Opiates Screen Negative Acetaminophen Level < 10.0ug/ml Urine Barbiturates Negative Urine Benzodiazepines Screen Negative Urine Cocaine Screen Negative Urine Cannabinoids Negative Ethyl Alcohol Level < 10.0mg/dl Assessment and Plan Assessment/Diagnosis [place] I: SCHIZOAFFECTIVE DISORDER. AMPHETAMINE USE DISORDER [place] II: BORDERLINE AND ANTISOCIAL TRAITS [place] III: PER RECORD [place] IV: SEVERE [place] V: GAF 25 Recommendation/Plan Medication Management AGREE WITH CURRENT MEDS REGIME. Psychotherapy DEFER TO INPT Follow-up/Disposition TRANSFER TO INPT PSYCH FOR DTS. PT CAN BE TRANSFERRED VOLUNTARY. CAN BE PLACED ON 5150 FOR DTS IF NEEDED WELL. 5150 Recommendation: BOUBACAR SANZ MD Jan 28, 2017 14:51
[2017-01-28] MEDS ORDERED: OLANZAPINE (ODT) 5 MG TAB ODT ONE (15:30)
--- NOTE | 2017-01-28 16:13 | ERA ---
ER Documentation Chief Complaint Date/Time DATE: 01/28/17 TIME: 16:13 Chief Complaint pt arrived with razor blade in mouth and wants to ,removed in triage HPI Patient is a 41-year-old male with psychiatric disease who presents saying "people are after me". He also is having suicidal ideation and had a razor blade in his mouth and said I already cut my right arm. He says "please do not send her to [facility]". The symptoms started this morning. He said he is supposed to take Abilify gabapentin and Depakote but has not been taking these. Upon review of old medical records the patient has multiple visits to the ER. Review of the emergency department information exchange shows visits to 5 separate emergency departments. ROS All systems reviewed and are negative except as per history of present illness. Medications Home Meds Active Scripts Hydrocodone/Acetaminophen ([place] 5-325 Tablet) 1 Each Tablet, 1 TAB PO Q6H Y for SEVERE PAIN LEVEL 7-10, #7 TAB Prov:KRISTIAN BHAKTA NP 12/26/16 Ibuprofen* (Motrin*) 600 Mg Tab, 600 MG PO Q6H Y for PAIN AND OR ELEVATED TEMP, #30 TAB Prov:KRISTIAN BHAKTA NP 12/26/16 Acetaminophen with Codeine (Acetaminophen-Cod #3 Tablet) 1 Each Tablet, 1 TAB PO Q6H Y for PAIN, #10 TAB Prov:SALMA MAYFIELD MD 09/25/16 Ibuprofen* (Motrin*) 600 Mg Tab, 600 MG PO Q6, #30 TAB Prov:SALMA MAYFIELD MD 09/25/16 Prednisone* (Prednisone*) 50 Mg Tablet, 50 MG PO DAILY, #4 TAB Prov:MARIBELL GAINES PA-C 09/22/16 Albuterol Sulfate* (Proair HFA*) 8.5 Gm Hfa.aer.ad, 2 PUFF INH Q4, #1 INHALER Prov:MARIBELL GAINES PA-C 09/22/16 Hydrocodone/Acetaminophen ([place] 5-325 Tablet) 1 Each Tablet, 1 EACH PO Q6, #7 TAB Prov:TANIA URIOSTEGUI DO 09/14/16 Naproxen* (Naprosyn*) 500 Mg Tablet, 500 MG PO BID Y for PAIN AND/OR INFLAMMATION, #22 TAB Prov:TANIA URIOSTEGUI DO 09/14/16 Triamcinolone Acetonide* (Kenalog*) 0.1%-15GM Cr, 1 APPLIC TOP BID, #1 TUB Prov:JENNIFER DIAMOND 06/13/16 Naproxen* (Naprosyn*) 500 Mg Tablet, 500 MG PO BID Y for PAIN AND/OR INFLAMMATION, #30 TAB Prov:JAYSON ZUÑIGA PA-C 05/06/16 Hydrocodone Bit-Acetaminophen* ([place]asso*) 5-325 Mg Tab, 1 TAB PO Q6 Y for PAIN, # 7 TAB Prov:JAYSON ZUÑIGA PA-C 05/06/16 Naproxen* (Naproxen*) 500 Mg Tablet, 500 MG PO BID Y for PAIN LEVEL 1-5, #30 TAB Prov:TANIA URIOSTEGUI DO 01/17/16 Clindamycin Hcl* (Clindamycin Hcl*) 300 Mg Capsule, 300 MG PO TID for 10 Days, CAP Prov:LEONEL MORRIS NP 09/15/15 Reported Medications Hydrocodone Bit-Acetaminophen ([place]) 1 Tab Tablet, 1 TAB PO Q6 06/06/12 Aripiprazole* (Abilify*) 20 Mg Tablet, 30 MG PO DAILY, 0 Refills 06/06/12 Paroxetine Hcl* (Paxil*) 30 Mg Tablet, 40 MG PO DAILY, 0 Refills 06/06/12 Allergies Allergies: Coded Allergies: Phenytoin Sodium Extended (Verified Allergy, Intermediate, INCREASE SZ ACTIVITY, 09/25/16) PMhx/Soc History of Surgery: Yes (l hand sx 10/08) Anesthesia Reaction: No Hx Neurological Disorder: Yes (seizure) Hx Respiratory Disorders: No Hx Cardiac Disorders: No Hx Psychiatric Problems: Yes (bipolar, schizoprenia) Hx Miscellaneous Medical Probl: Yes (osteoarthritis) Hx Alcohol Use: Yes (occasional) Hx Substance Use: Yes (meth 4 days ago) Hx Tobacco Use: Yes (1/2 PACK/DAY) Smoking Status: Current every day smoker FmHx Family History: No diabetes Physical Exam Vitals Vital Signs Date Time Temp Pulse Resp B/P Pulse Ox O2 Delivery O2 Flow Rate FiO2 01/28/17 15:48 99.4 104 24 128/87 100 01/28/17 15:33 99.4 105 25 130/89 100 01/28/17 13:01 98.0 74 18 142/70 98 Physical Exam Const: Moderate distress Head: Atraumatic Eyes: Normal Conjunctiva ENT: Normal External Ears, Nose and Mouth. Neck: Full range of motion..~ No meningismus. Resp: Clear to auscultation bilaterally Cardio: Regular rate and rhythm, no murmurs Abd: Soft, non tender, non distended. Normal bowel sounds Skin: Abrasions to right arm Back: No midline or flank tenderness Ext: No cyanosis, or edema Neur: Awake and alert Psych: Active suicidal ideation Result Diagram: 01/28/17 1345 01/28/17 1345 Results 24 hrs Laboratory Tests Test 01/28/17 13:45 White Blood Count 6.910^3/ul Red Blood Count 4.8210^6/ul Hemoglobin 14.6g/dl Hematocrit 45.9% Mean Corpuscular Volume 95.2fl Mean Corpuscular Hemoglobin 30.3pg Mean Corpuscular Hemoglobin Concent 31.8g/dl Red Cell Distribution Width 13.9% Platelet Count 31846^3/UL Mean Platelet Volume 8.9fl Neutrophils % 51.7% Lymphocytes % 33.6% Monocytes % 13.7% Eosinophils % 0.6% Basophils % 0.1% Nucleated Red Blood Cells % 0.0/100WBC Neutrophils # 3.610^3/ul Lymphocytes # 2.310^3/ul Monocytes # 0.910^3/ul Eosinophils # 0.010^3/ul Basophils # 0.010^3/ul Nucleated Red Blood Cells # 0.010^3/ul Urine Color LT. YELLOW Urine Clarity CLEAR Urine pH 6.0 Urine Specific [place] 1.020 Urine Ketones NEGATIVE Urine Nitrite NEGATIVE Urine Bilirubin NEGATIVE Urine Urobilinogen 0.2 E.U./dL Urine Leukocyte Esterase NEGATIVE Urine Hemoglobin NEGATIVE Urine Glucose NEGATIVE% Urine Total Protein NEGATIVE Sodium Level 146mmol/L Potassium Level 3.9mmol/L Chloride Level 104mmol/L Carbon Dioxide Level 29mmol/L Anion Gap 17 Blood Urea Nitrogen 30mg/dl Creatinine 0.99mg/dl Glucose Level 116mg/dl Calcium Level 9.7mg/dl Total Bilirubin 2.0mg/dl Direct Bilirubin 0.00mg/dl Indirect Bilirubin 2.0mg/dl Aspartate Amino Transf (AST/SGOT) 50IU/L Alanine Aminotransferase (ALT/SGPT) 35IU/L Alkaline Phosphatase 65IU/L Total Protein 8.4g/dl Albumin 5.1g/dl Globulin 3.30g/dl Albumin/Globulin Ratio 1.54 Salicylates Level < 1.0mg/dl Urine Opiates Screen Negative Acetaminophen Level < 10.0ug/ml Urine Barbiturates Negative Urine Amphetamines Screen POSITIVE Urine Benzodiazepines Screen Negative Urine Cocaine Screen Negative Urine Cannabinoids Negative Ethyl Alcohol Level < 10.0mg/dl Current Medications Medications (Trade) Dose Ordered Sig/Faina Route PRN Reason Start Time Stop Time Status Last Admin Dose Admin Aripiprazole (Abilify) 20 mg DAILY PO 01/28/17 13:30 01/28/17 13:58 Divalproex Sodium (Depakote) 1,000 mg DAILY PO 01/28/17 13:30 01/28/17 13:57 Gabapentin (Neurontin) 300 mg TID PO 01/28/17 21:00 01/28/17 21:00 DC Gabapentin (Neurontin) 300 mg TID PO 01/28/17 13:38 01/28/17 13:58 Lorazepam (Ativan) 1 mg ONCE ONCE PO 01/28/17 14:30 01/28/17 14:31 DC 01/28/17 14:50 Olanzapine (Zyprexa Zydis) 5 mg ONCE ONCE ODT 01/28/17 15:30 01/28/17 15:31 DC 01/28/17 15:57 Procedures/MDM Smoking Cessation Therapy: Pt. was lectured for greater than 3 minutes on the health risks of continued smoking and the benefits of cessation. Patient is a 41-year-old male who presents with active suicidal ideation with plan. He also attempted to hang himself with a blanket in the emergency department. He was seen by psychiatry who recommended a 5150 hold. I agree with this at this time. He is medically clear. The patient does have a urine drug screen positive for methamphetamines and he does admit to using methamphetamines today. Critical Care: Time: 35 minutes excluding all billable procedures. Treatments/Evaluations: Close monitoring and treatment of unstable vital signs, cardiorespiratory, and neurologic status, while maintaining tight balance of fluid, respiratory, and cardiac interventions. Departure Diagnosis: Primary Impression: Suicidal ideation Condition: Serious OSTICK,MEAGAN MD Jan 28, 2017 16:13
[2017-01-28] MEDS ORDERED: GABAPENTIN 300 MG CAP PO SCH (21:00)
[2017-01-29] MEDS: ARIPIPRAZOLE 5 MG TAB PO SCH (09:02)
[2017-01-29] MEDS: GABAPENTIN 300 MG CAP PO SCH ×2 (09:02→13:42)
[2017-01-29] MEDS: DIVALPROEX (EC) 500 MG TAB PO SCH (09:02)
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
[2017-01-29] MEDS ORDERED: LORAZEPAM 2 MG INJ IM ONE (10:30)
[2017-01-29] MEDS ORDERED: HALOPERIDOL 5 MG INJ IM ONE (10:30)
[2017-01-29 20:40] VITALS: BP 106/97; PULSE 75; RESP 16; TEMP 98.1
== END 2017-01-29 20:49 | disposition short-term general hospital (02) ==
LOC: E/R 12:53
DX: F29 Unspecified psychosis not due to a substance or known physiological condition (principal); R40.2252 Coma scale, best verbal response, oriented, at arrival to emergency department; R45.851 Suicidal ideations; F17.210 Nicotine dependence, cigarettes, uncomplicated; R40.2142 Coma scale, eyes open, spontaneous, at arrival to emergency department; R40.2362 Coma scale, best motor response, obeys commands, at arrival to emergency department
CPT/HCPCS: 80053; 80306; 80307; 81003; 85025; 96372; Z7502; Z7610